=== PATIENT | female | born 1960 | race Caucasian/White ===

== ENCOUNTER → 2021-06-07 | Outpatient (CLI) | payer OTHER ==
[~2021-06-07] MED LIST: ALBIPROI INH; ALBU90OI INH; AMOX500 PO; CODGUAEL PO; CYCL10 PO; DOXY100 PO; HYDACE5 PO; HYDGUAL120 PO; HYDSUL200 PO; OXYACE5T PO; PRED20 PO; PROM25 PO; RXCYCL10 PO
[2021-06-12 12:09] LABS: HPV 16 Negative (Negative); HPV 18 Negative (Negative); HPV OTHER HR TYPES Negative (Negative)
== END | disposition home or self-care (01) ==
LOC: LAB 18:04 → LAB SHORT 18:04
PROVIDERS: Physician Assistant
DX: Z01.419 Encounter for gynecological examination (general) (routine) without abnormal findings (principal)
CPT/HCPCS: 87624; G0123

== ENCOUNTER → 2022-10-08 | Outpatient (CLI) | payer OTHER | LOC: LAB 11:50 → LAB SHORT 11:50 | DX: J98.4 Other disorders of lung (principal) | CPT/HCPCS: 87070; 87205 ==

== ENCOUNTER → 2022-10-09 | Outpatient (CLI) | payer OTHER | END | disposition home or self-care (01) | LOC: LAB SHORT 11:50 → LAB 11:50 | DX: J98.4 Other disorders of lung (principal) | CPT/HCPCS: 87070; 87205 ==

== ENCOUNTER → 2022-10-10 | Outpatient (CLI) | payer OTHER | END | disposition home or self-care (01) | LOC: LAB 11:55 → LAB SHORT 11:55 | DX: J98.4 Other disorders of lung (principal) | CPT/HCPCS: 87070; 87205 ==

== ENCOUNTER → 2023-04-23 | Outpatient (CLI) | payer OTHER ==
[~2023-04-23] MED LIST changes: +ACET325 PO; +EUTHYROX50 MCG PO; +FLUT.05NI
== END ==
LOC: LAB SHORT 14:25 → LAB 14:25
DX: E89.0 Postprocedural hypothyroidism (principal)
CPT/HCPCS: 84443